=== PATIENT | female | born 1950 | race Caucasian/White ===

== ENCOUNTER 2018-04-24 08:43 | Outpatient (CLI) | payer MEDICARE | END 2018-04-24 08:44 | disposition home or self-care (01) | LOC: BICMAMMO 08:43 | PROVIDERS: ATTEND Obstetrics & Gynecology | DX: Z12.31 Encounter for screening mammogram for malignant neoplasm of breast (principal) | CPT/HCPCS: 77063; 77067 ==

== ENCOUNTER 2019-06-08 12:14 | Outpatient (CLI) | payer MEDICARE ==
--- NOTE | 2019-06-08 14:23 | MMO ---
Bilateral MAMMO Bilat Screen [facility]. CLINICAL HISTORY: Patient is 68 years old and is seen for screening. The patient has no family history of breast cancer. The patient has no personal history of cancer. VIEWS: The views performed were: bilateral craniocaudal with tomosynthesis; bilateral mediolateral oblique with tomosynthesis; and right exaggerated craniocaudal. FILMS COMPARED: The present examination has been compared to prior imaging studies performed at [facility] on 04/10/2016, 04/22/2017 and 04/24/2018, and at [facility] on 07/07/2012. This study has been interpreted with the assistance of computer-aided detection. MAMMOGRAM FINDINGS: The breasts are heterogeneously dense, which could obscure a lesion on mammography. Finding 1: There are multiple groups of stable benign appearing calcifications seen in both breasts. Finding 2: There is a post-surgical scar seen in the right breast. Finding remains unchanged from the prior study. There are no suspicious masses, suspicious calcifications, or new areas of architectural distortion. IMPRESSION: THERE IS NO MAMMOGRAPHIC EVIDENCE OF MALIGNANCY. A ROUTINE FOLLOW-UP MAMMOGRAM IN 1 YEAR IS RECOMMENDED. THE RESULTS OF THIS EXAM WERE SENT TO THE PATIENT. ACR BI-RADS Category 2 - Benign finding MAMMOGRAPHY NOTE: 1. A negative mammogram report should not delay a biopsy if a dominant of clinically suspicious mass is present. 2. Approximately 10% to 15% of breast cancers are not detected by mammography. 3. Adenosis and dense breasts may obscure an underlying neoplasm. Reported by: GREGORY GARAY MD Electonically Signed: [id number]
== END 2019-06-08 12:15 | disposition home or self-care (01) ==
LOC: BICMAMMO 12:14
PROVIDERS: ATTEND Obstetrics & Gynecology
DX: Z12.31 Encounter for screening mammogram for malignant neoplasm of breast (principal)
CPT/HCPCS: 77063; 77067

== ENCOUNTER 2020-07-01 08:54 | Outpatient (CLI) | payer MEDICARE ==
--- NOTE | 2020-07-01 11:20 | BD ---
BONE DENSITOMETRY: Date: 07/01/2020 HISTORY: Postmenopausal screening. FINDINGS: Lumbar Spine: BMD (g/cm2) L1 1.042 T-Score: 0.5 L2 1.138 T-Score: 1.0 L3 1.298 T-Score: 1.9 L4 1.198 T-Score: 1.2 Total 1.179 T-Score: 1.2 Left Femoral Neck: 0.715 T-Score: -1.2 Total Femur: 0.919 T-Score: -0.2 IMPRESSION: 1. Bone mineral density of the lumbar spine is within normal range. 2. Bone mineral density of the femoral neck indicate osteopenia. 10 YEAR FRACTURE RISK: Major osteoporotic fracture: 8.8% Hip fracture: 0.9% POS: AGW
== END 2020-07-01 08:55 | disposition home or self-care (01) ==
LOC: BICMAMMO 08:54
PROVIDERS: ATTEND Obstetrics & Gynecology
DX: Z13.820 Encounter for screening for osteoporosis (principal); M85.852 Other specified disorders of bone density and structure, left thigh
CPT/HCPCS: 77080

== ENCOUNTER 2020-07-29 13:58 | Outpatient (CLI) | payer MEDICARE | END 2020-07-29 13:59 | disposition home or self-care (01) | LOC: BICULT 13:58 | PROVIDERS: ATTEND Student in an Organized Health Care Education/Training Program | DX: E04.2 Nontoxic multinodular goiter (principal) | CPT/HCPCS: 76536 ==

== ENCOUNTER 2021-03-03 08:56 | Outpatient (CLI) | payer MEDICARE | END 2021-03-03 08:57 | disposition home or self-care (01) | LOC: BICMAMMO 08:56 | PROVIDERS: ATTEND Student in an Organized Health Care Education/Training Program | DX: N63.10 Unspecified lump in the right breast, unspecified quadrant (principal) | CPT/HCPCS: 76642; 77065; G0279 ==

== ENCOUNTER 2023-01-11 09:37 | Outpatient (CLI) | payer MEDICARE | END 2023-01-11 09:38 | disposition home or self-care (01) | LOC: RAD 09:37 | PROVIDERS: ATTEND Internal Medicine Rheumatology | DX: M25.522 Pain in left elbow (principal) ==

== ENCOUNTER 2023-02-14 11:07 | Outpatient (CLI) | payer MEDICARE | END 2023-02-14 11:08 | disposition home or self-care (01) | LOC: BICMAMMO 11:07 | PROVIDERS: ATTEND Student in an Organized Health Care Education/Training Program | DX: Z12.31 Encounter for screening mammogram for malignant neoplasm of breast (principal); Z91.89 Other specified personal risk factors, not elsewhere classified | CPT/HCPCS: 77063; 77067 ==

== ENCOUNTER 2023-09-30 13:20 | Inpatient (IN) | payer MEDICARE ==
[~2023-09-30 13:20] MED LIST: Iopamidol-370 76% 500 ML MDV (1 ML CHARGE) ONE
[2023-09-30] MEDS ORDERED: Acetaminophen 500 MG TAB ONE (14:53)
[2023-09-30] MEDS ORDERED: Ketorolac Tromethamine 30 MG (1 mL) VIAL ONE (14:53)
[2023-09-30] MEDS ORDERED: Magnesium 2 GM/50 ML BAG (IN WATER) ONE (14:53)
[2023-09-30 15:03] LABS: Hematocrit 34.8 % (36.0-47.0); Hemoglobin 11.3 g/dL (12.0-16.0); Mean Corpuscular HGB CONC 32.5 g/dL (32.0-36.0); Mean Corpuscular Volume 86.1 fL (78.0-98.0); Mean Platelet Volume 9.1 fL (7.4-10.4); Platelet Count 333 10x3/uL (130-400); RBC Distribution Width 13.3 % (11.5-14.5); Red Blood Cell (RBC) Count 4.04 mill/uL (4.20-5.40)
[2023-09-30 15:19] LABS: ALT (SGPT) 92 U/L (8-55); AST (SGOT) 65 U/L (5-34); Albumin 2.8 g/dL (3.4-4.8); Alkaline Phosphatase 305 U/L (40-110); Anion Gap 15 mmol/L (10-20); BUN (Urea Nitrogen) 14 mg/dL (9.8-20.1); Bilirubin, Total 0.4 mg/dL (0.2-1.2); Calc. Creatinine Clearance 0 mL/min (70-130); Calcium 9.3 mg/dL (7.8-10.44); Carbon Dioxide 26 mmol/L (23-31); Chloride 104 mmol/L (98-107); Estimated GFR 83; Glucose 110 mg/dL (80-115); Lipase 29 U/L (8-78); Potassium 3.7 mmol/L (3.5-5.1); Protein, Total 6.8 g/dL (5.8-8.1); Sodium 141 mmol/L (136-145)
[2023-09-30 15:23] LABS: Troponin I 0.065 ng/mL (< 0.028)
[2023-09-30 15:30] LABS: Band 20 % (5-11); Eosinophils 4 % (0-10); Large Platelets 3.9 % (0-5); Lymphocytes 20 % (21-51); Metamyelocyte 2 % (0-0); Monocytes 4 % (0-10); Myelocyte 4 % (0-0); Neutrophil 44 % (42-75); Platelet Adequacy Comment Platelets Normal; Polychromasia SLIGHT = 2-3 cells HPF (0-2); Reactive Lymphocytes 3 % (0-10)
[2023-09-30 15:30] LABS: Bacteria/HPF None Seen HPF (None Seen); Bilirubin Negative (Negative); Blood, Urine Negative (Negative); CAUTI Indications for Culture Pelvic or flank pain; Clarity Clear (Clear); Glucose, Urine (Dipstick) Normal (Negative); Ketone, Urine Negative (Negative); Leukocyte Negative Leu/uL (Negative); Nitrite Negative (Negative); Protein, Urine (Dipstick) Negative (Neg-Trace); RBC/HPF 0-3 HPF (0-3); Specific Gravity, Urine 1.006 (1.002-1.036); Squamous Epithelial 0-3 HPF (0-3); Urobilinogen Normal mg/dL (Less than 2); WBC/HPF None Seen HPF (0-3)
[2023-09-30 15:32] LABS: Urine Culture Reflex No No
[2023-09-30 15:56] LABS: Influenza A by NAA Not Detected (NotDetected); Influenza B by NAA Not Detected (NotDetected); SARS-CoV-2 NAA Rapid Test Not Detected (NotDetected)
[2023-09-30] MEDS ORDERED: Ondansetron PF 4 MG/2 ML Vial IVP PRN (16:31)
[2023-09-30] MEDS ORDERED: Acetaminophen 325 MG TAB PO PRN (16:31)
[2023-09-30] MEDS ORDERED: Aspirin Chewable 81 MG TAB ONE (16:32)
[2023-09-30] MEDS ORDERED: LevoFLOXacin 750 mg/D5W 150 ml Premix Bag ONE (16:32)
[2023-09-30] MEDS ORDERED: Enoxaparin 80 MG (0.8 mL) SYRINGE ONE (16:54)
[2023-09-30 17:02] LABS: Magnesium 2.6 mg/dL (1.6-2.6)
[2023-09-30 17:08] LABS: MONO NEGATIVE CONTROL ZONE White (Negative) (White); MONO POSITIVE CONTROL Pink Line (Positive) (PINK/RED); Mononucleosis NEGATIVE (NEGATIVE)
[2023-09-30] MEDS ORDERED: Labetalol HCl 100 MG/20 ML VIAL SLOW IVP PRN (17:25)
[2023-09-30] MEDS ORDERED: Milk Of Magnesia 30 ML UDCUP PO PRN (18:53)
[2023-09-30 20:34] LABS: Legionella Urinary Ag Negative (Negative)
[2023-09-30 20:50] LABS: Strep pneumo Urine Ag NEGATIVE (NEGATIVE)
[2023-09-30] MEDS ORDERED: Aspirin 325 MG TAB ONE (21:15)
[2023-09-30 21:19] LABS: Troponin I 0.091 ng/mL (< 0.028)
[2023-09-30] MEDS: Aspirin 325 MG TAB PO SCH (21:21)
[2023-09-30] MEDS: Famotidine/PF 20 mg/2ml Vial SLOW IVP SCH (21:21)
[2023-10-01] MEDS ORDERED: Enoxaparin 80 MG (0.8 mL) SYRINGE SC SCH (04:00)
[2023-10-01 08:25] LABS: ALT (SGPT) 81 U/L (8-55); AST (SGOT) 53 U/L (5-34); Alkaline Phosphatase 308 U/L (40-110); Anion Gap 16 mmol/L (10-20); BUN (Urea Nitrogen) 12 mg/dL (9.8-20.1); Bilirubin, Total 0.4 mg/dL (0.2-1.2); Calc. Creatinine Clearance 0 mL/min (70-130); Calcium 9.7 mg/dL (7.8-10.44); Carbon Dioxide 26 mmol/L (23-31); Cardiac Risk 5.2 (Less than 4.5); Chloride 103 mmol/L (98-107); Cholesterol 192 mg/dl (< 200 Desired); Estimated GFR 86; Globulin 4.1 g/dL (2.4-3.5); Glucose 90 mg/dL (80-115); HDL Cholesterol 37 mg/dL (>60 Neg Risk); LDL Cholesterol, Calculated 133 mg/dL; Magnesium 2.2 mg/dL (1.6-2.6); Protein, Total 7.1 g/dL (5.8-8.1); Sodium 141 mmol/L (136-145); Triglycerides 112 mg/dL (Less than 150)
[2023-10-01 08:30] LABS: Troponin I 0.074 ng/mL (< 0.028)
[2023-10-01] MEDS ORDERED: Famotidine/PF 20 mg/2ml Vial ONE (08:34)
[2023-10-01 08:35] LABS: Hemoglobin A1c 5.5 % (4.0-6.0)
[2023-10-01 08:41] LABS: Hematocrit 35.4 % (36.0-47.0); Hemoglobin 11.3 g/dL (12.0-16.0); Mean Corpuscular HGB CONC 31.9 g/dL (32.0-36.0); Mean Corpuscular Hemoglobin 27.8 pg (27.0-31.0); Mean Platelet Volume 8.8 fL (7.4-10.4); Platelet Count 328 10x3/uL (130-400); RBC Distribution Width 13.4 % (11.5-14.5); Red Blood Cell (RBC) Count 4.07 mill/uL (4.20-5.40)
[2023-10-01] MEDS: Aspirin Chewable 81 MG TAB PO SCH (08:41)
[2023-10-01 08:43] LABS: Anisocytosis SLIGHT = 6-15 cells HPF (0-5); Band 5 % (5-11); Eosinophils 5 % (0-10); Lymphocytes 26 % (21-51); Metamyelocyte 2 % (0-0); Monocytes 11 % (0-10); Neutrophil 51 % (42-75); Platelet Adequacy Comment Platelets Normal; Polychromasia SLIGHT = 2-3 cells HPF (0-2)
[2023-10-01] MEDS ORDERED: Loratadine 10 MG TAB PO PRN (11:53)
[2023-10-01] MEDS ORDERED: Metoprolol Tartrate 25 MG TAB PO PRN (11:53)
[2023-10-01] MEDS ORDERED: Non-Formulary Item 1 EACH (Esomeprazole Magnesium [Nexium] 20 MG Capsule.Dr) PO SCH (12:00)
[2023-10-01] MEDS: Enoxaparin 80 MG (0.8 mL) SYRINGE SC SCH (12:33)
[2023-10-01] MEDS ORDERED: Azithromycin 500 MG in Sodium Chloride 0.9% 250 ML 250 ML IVPB SCH (16:45)
[2023-10-01] MEDS ORDERED: Promethazine HCl 12.5 MG in Sodium Chloride 0.9% 50 ML IVPB PRN (16:46)
[2023-10-01] MEDS ORDERED: cefTRIAXone (ROCEPHIN) 2 GM VIAL ONE (17:43)
[2023-10-01] MEDS ORDERED: Sodium Chloride 0.9% 0 ML ONE (17:48)
[2023-10-01] MEDS: cefTRIAXone\\ROCEPHIN 2 GM in Sodium Chloride 0.9% 100 ML IVPB SCH (17:51)
[2023-10-01] MEDS ORDERED: LevoFLOXacin 750 mg/D5W 750 MG in Premix 1 BAG IVPB SCH (18:00)
[2023-10-01] MEDS: Cholecalciferol 1,000 UNITS (25 MCG) TAB PO SCH (20:33)
[2023-10-01] MEDS: Doxycycline 100 MG CAP PO SCH (20:33)
[2023-10-01] MEDS: Hydroxychloroquine Sulfate 200 MG TAB PO SCH (20:35)
[2023-10-01] MEDS ORDERED: Hydroxychloroquine Sulfate 200 MG TAB PO SCH (21:00)
[2023-10-02 04:27] LABS: Hematocrit 32.6 % (36.0-47.0); Hemoglobin 10.6 g/dL (12.0-16.0); Mean Corpuscular HGB CONC 32.5 g/dL (32.0-36.0); Mean Corpuscular Hemoglobin 27.5 pg (27.0-31.0); Mean Corpuscular Volume 84.5 fL (78.0-98.0); Mean Platelet Volume 9.5 fL (7.4-10.4); Platelet Count 315 10x3/uL (130-400); RBC Distribution Width 13.4 % (11.5-14.5); Red Blood Cell (RBC) Count 3.86 mill/uL (4.20-5.40)
[2023-10-02 04:49] LABS: Globulin 3.2 g/dL (2.4-3.5)
[2023-10-02 04:53] LABS: ALT (SGPT) 54 U/L (8-55); AST (SGOT) 34 U/L (5-34); Albumin 2.6 g/dL (3.4-4.8); Alkaline Phosphatase 238 U/L (40-110); Anion Gap 12 mmol/L (10-20); BUN (Urea Nitrogen) 12 mg/dL (9.8-20.1); Bilirubin, Total 0.3 mg/dL (0.2-1.2); Calc. Creatinine Clearance 0 mL/min (70-130); Calcium 9.1 mg/dL (7.8-10.44); Carbon Dioxide 26 mmol/L (23-31); Chloride 105 mmol/L (98-107); Estimated GFR 90; Glucose 97 mg/dL (80-115); Magnesium 2.1 mg/dL (1.6-2.6); Potassium 4.4 mmol/L (3.5-5.1); Protein, Total 5.8 g/dL (5.8-8.1); Sodium 139 mmol/L (136-145)
[2023-10-02 05:37] LABS: Band 2 % (5-11); Eosinophils 5 % (0-10); Lymphocytes 21 % (21-51); Metamyelocyte 2 % (0-0); Monocytes 8 % (0-10); Myelocyte 4 % (0-0); Neutrophil 57 % (42-75); Platelet Adequacy Comment Platelets Normal; RBC Morphology Within Normal Limits; Toxic Granulation SLIGHT
[2023-10-02] MEDS ORDERED: Enoxaparin 80 MG (0.8 mL) SYRINGE SC SCH (09:00)
[2023-10-02] MEDS: Enoxaparin 80 MG (0.8 mL) SYRINGE SC SCH (09:30)
[2023-10-02] MEDS: Calcium Carbonate 500 MG TAB PO SCH (09:31)
[2023-10-02] MEDS: Famotidine 20 MG TAB PO SCH (09:31)
[2023-10-02] MEDS: Multivit, Therapeutic 1 TAB PO SCH (09:31)
[2023-10-02] MEDS: CeleCOXIB 100 MG CAP PO SCH (20:00)
[2023-10-02] MEDS: traMADol HCl 50 MG TAB PO SCH (20:01)
[2023-10-02] MEDS ORDERED: Non-Formulary Item 1 EACH (Celecoxib [Celebrex] 200 MG Capsule) PO SCH (21:00)
[2023-10-03 04:56] LABS: Hematocrit 33.7 % (36.0-47.0); Hemoglobin 10.9 g/dL (12.0-16.0); Mean Corpuscular HGB CONC 32.3 g/dL (32.0-36.0); Mean Corpuscular Hemoglobin 27.9 pg (27.0-31.0); Mean Corpuscular Volume 86.4 fL (78.0-98.0); Mean Platelet Volume 9.4 fL (7.4-10.4); Platelet Count 330 10x3/uL (130-400); RBC Distribution Width 13.6 % (11.5-14.5)
[2023-10-03 05:09] LABS: Globulin 3.2 g/dL (2.4-3.5)
[2023-10-03 05:13] LABS: ALT (SGPT) 47 U/L (8-55); AST (SGOT) 33 U/L (5-34); Albumin 2.7 g/dL (3.4-4.8); Alkaline Phosphatase 214 U/L (40-110); Anion Gap 14 mmol/L (10-20); BUN (Urea Nitrogen) 13 mg/dL (9.8-20.1); Bilirubin, Total 0.3 mg/dL (0.2-1.2); Calc. Creatinine Clearance 0 mL/min (70-130); Calcium 9.1 mg/dL (7.8-10.44); Carbon Dioxide 25 mmol/L (23-31); Chloride 107 mmol/L (98-107); Estimated GFR 84; Glucose 91 mg/dL (80-115); Magnesium 2.1 mg/dL (1.6-2.6); Potassium 4.5 mmol/L (3.5-5.1); Protein, Total 5.9 g/dL (5.8-8.1); Sodium 141 mmol/L (136-145)
[2023-10-03 06:13] LABS: Eosinophils 5 % (0-10); Large Platelets 1.9 % (0-5); Lymphocytes 26 % (21-51); Metamyelocyte 1 % (0-0); Monocytes 12 % (0-10); Myelocyte 3 % (0-0); Neutrophil 52 % (42-75); Platelet Adequacy Comment Platelets Normal; RBC Morphology Within Normal Limits; Reactive Lymphocytes 1 % (0-10); Smudge Cells 10.5 %
[2023-10-03 21:08] LABS: Mycoplasma pneumoniae IgG AB 186 U/mL (0-99); Mycoplasma pneumoniae IgM AB Less than 770 U/mL (0-769)
[2023-10-04 04:30] LABS: #Basophils 0.06 10x3/uL (0.0-0.2); %Basophils 1.2 % (0.0-1.0); %Lymphocytes 35.1 % (21.0-51.0); %Neutrophils 45.6 % (42.0-75.0); Hematocrit 33.7 % (36.0-47.0); Hemoglobin 10.9 g/dL (12.0-16.0); Mean Corpuscular HGB CONC 32.3 g/dL (32.0-36.0); Mean Corpuscular Hemoglobin 27.4 pg (27.0-31.0); Mean Corpuscular Volume 84.7 fL (78.0-98.0); Mean Platelet Volume 9.2 fL (7.4-10.4); Platelet Count 322 10x3/uL (130-400); RBC Distribution Width 13.4 % (11.5-14.5); Red Blood Cell (RBC) Count 3.98 mill/uL (4.20-5.40)
[2023-10-04 04:51] LABS: ALT (SGPT) 54 U/L (8-55); AST (SGOT) 46 U/L (5-34); Albumin 2.9 g/dL (3.4-4.8); Alkaline Phosphatase 203 U/L (40-110); Anion Gap 13 mmol/L (10-20); BUN (Urea Nitrogen) 15 mg/dL (9.8-20.1); Bilirubin, Total 0.4 mg/dL (0.2-1.2); Calc. Creatinine Clearance 0 mL/min (70-130); Calcium 9.5 mg/dL (7.8-10.44); Carbon Dioxide 28 mmol/L (23-31); Chloride 105 mmol/L (98-107); Estimated GFR 74; Globulin 3.1 g/dL (2.4-3.5); Glucose 93 mg/dL (80-115); Magnesium 2.2 mg/dL (1.6-2.6); Potassium 4.8 mmol/L (3.5-5.1); Sodium 141 mmol/L (136-145)
[2023-10-04] MEDS: Enoxaparin 40 MG (0.4 mL) SYRINGE SC SCH (09:36)
[2023-10-05 04:41] LABS: ALT (SGPT) 103 U/L (8-55); AST (SGOT) 100 U/L (5-34); Albumin 3.3 g/dL (3.4-4.8); Alkaline Phosphatase 212 U/L (40-110); Anion Gap 14 mmol/L (10-20); BUN (Urea Nitrogen) 20 mg/dL (9.8-20.1); Bilirubin, Total 0.4 mg/dL (0.2-1.2); Calc. Creatinine Clearance 0 mL/min (70-130); Calcium 10.1 mg/dL (7.8-10.44); Carbon Dioxide 30 mmol/L (23-31); Chloride 100 mmol/L (98-107); Estimated GFR 64; Globulin 3.5 g/dL (2.4-3.5); Glucose 96 mg/dL (80-115); Magnesium 2.3 mg/dL (1.6-2.6); Potassium 4.9 mmol/L (3.5-5.1); Protein, Total 6.8 g/dL (5.8-8.1); Sodium 139 mmol/L (136-145)
[2023-10-05 04:52] LABS: #Basophils 0.03 10x3/uL (0.0-0.2); %Basophils 0.6 % (0.0-1.0); %Eosinophils 3.2 % (0.0-10.0); %Lymphocytes 38.6 % (21.0-51.0); %Monocytes 10.4 % (0.0-10.0); %Neutrophils 44.2 % (42.0-75.0); Hematocrit 37.9 % (36.0-47.0); Hemoglobin 11.9 g/dL (12.0-16.0); Mean Corpuscular HGB CONC 31.4 g/dL (32.0-36.0); Mean Corpuscular Hemoglobin 27.4 pg (27.0-31.0); Mean Corpuscular Volume 87.3 fL (78.0-98.0); Mean Platelet Volume 9.2 fL (7.4-10.4); Platelet Count 366 10x3/uL (130-400); RBC Distribution Width 13.4 % (11.5-14.5); Red Blood Cell (RBC) Count 4.34 mill/uL (4.20-5.40)
[2023-10-05] MEDS: Hydroxychloroquine Sulfate 200 MG TAB PO SCH ×2 (09:17→20:45)
[2023-10-06 04:32] LABS: #Basophils 0.06 10x3/uL (0.0-0.2); %Basophils 1.3 % (0.0-1.0); %Eosinophils 2.2 % (0.0-10.0); %Lymphocytes 40.7 % (21.0-51.0); %Monocytes 11.3 % (0.0-10.0); %Neutrophils 42.1 % (42.0-75.0); Hematocrit 36.3 % (36.0-47.0); Hemoglobin 11.7 g/dL (12.0-16.0); Mean Corpuscular HGB CONC 32.2 g/dL (32.0-36.0); Mean Corpuscular Hemoglobin 28.1 pg (27.0-31.0); Mean Corpuscular Volume 87.1 fL (78.0-98.0); Mean Platelet Volume 9.3 fL (7.4-10.4); Platelet Count 347 10x3/uL (130-400); RBC Distribution Width 13.4 % (11.5-14.5); Red Blood Cell (RBC) Count 4.17 mill/uL (4.20-5.40)
[2023-10-06 05:06] LABS: ALT (SGPT) 99 U/L (8-55); AST (SGOT) 77 U/L (5-34); Albumin 3.2 g/dL (3.4-4.8); Alkaline Phosphatase 186 U/L (40-110); Anion Gap 13 mmol/L (10-20); BUN (Urea Nitrogen) 19 mg/dL (9.8-20.1); Bilirubin, Total 0.4 mg/dL (0.2-1.2); Calc. Creatinine Clearance 0 mL/min (70-130); Calcium 9.6 mg/dL (7.8-10.44); Carbon Dioxide 29 mmol/L (23-31); Chloride 101 mmol/L (98-107); Estimated GFR 76; Globulin 3.1 g/dL (2.4-3.5); Glucose 95 mg/dL (80-115); Magnesium 2.2 mg/dL (1.6-2.6); Potassium 4.7 mmol/L (3.5-5.1); Protein, Total 6.3 g/dL (5.8-8.1); Sodium 138 mmol/L (136-145)
[2023-10-06] MEDS: Aspirin Chewable 81 MG TAB PO SCH (09:49)
[2023-10-06] MEDS: cefTRIAXone\\ROCEPHIN 2 GM in Sodium Chloride 0.9% 100 ML IVPB SCH (10:55)
[2023-10-06 12:45] VITALS: BP 134/66; TEMP 98
== END 2023-10-06 14:57 | disposition home or self-care (01) | DRG 871 ==
LOC: ERS 13:20 → ERHOLD 16:36 → 2NO 10-01 18:15
PROVIDERS: ADMIT Family Medicine; ATTEND Hospitalist
DX: A41.9 Sepsis, unspecified organism (principal); J18.9 Pneumonia, unspecified organism; I24.89 Other forms of acute ischemic heart disease; I47.10 Supraventricular tachycardia, unspecified; I05.9 Rheumatic mitral valve disease, unspecified; K63.9 Disease of intestine, unspecified; I49.5 Sick sinus syndrome; M19.90 Unspecified osteoarthritis, unspecified site; Z90.710 Acquired absence of both cervix and uterus; Z79.899 Other long term (current) drug therapy; R50.9 Fever, unspecified
CPT/HCPCS: 36415; 70450; 70491; 71045; 71260; 74177; 76705; 80053; 80061; 81001; 83036; 83605; 83690; 83735; 83880; 84145; 84443; 84484; 85025; 86308; 86850; 86900; 86901; 87040; 87077; 87081; 87086; 87449; 87899; 93005; 93306; 96365; 96366; 96372; 96375; J0696; J1650; J1885; J1956; J3475; J3490; Q9967; S0028

== ENCOUNTER 2024-01-14 13:33 | Outpatient (CLI) | payer MEDICARE | END 2024-01-14 13:34 | disposition home or self-care (01) | LOC: RAD 13:33 | PROVIDERS: ATTEND Internal Medicine Critical Care Medicine | DX: R06.00 Dyspnea, unspecified (principal) | CPT/HCPCS: 71046 ==

== ENCOUNTER 2024-04-03 07:37 | Outpatient (CLI) | payer MEDICARE ==
[2024-04-03] MEDS ORDERED: Iopamidol 370 76% 100 ML VIAL ONE (14:44)
== END 2024-04-03 07:38 | disposition home or self-care (01) ==
LOC: BICCT 07:37
PROVIDERS: ATTEND Family Medicine
DX: R19.00 Intra-abdominal and pelvic swelling, mass and lump, unspecified site (principal); M85.08 Fibrous dysplasia (monostotic), other site
CPT/HCPCS: 36415; 74178; 82565; Q9967